=== PATIENT | female | born 1940 | race Two or more races ===

== ENCOUNTER 2017-08-12 19:28 | Emergency (ER) | payer MEDICARE ==
[~2017-08-12] VITALS: Ht 167.6 cm; Wt 81.6 kg
[~2017-08-12 19:28] MED LIST: ASPIR 8181 MG ORAL; LISINOPRIL20 MG ORAL
[2017-08-12 19:35] VITALS: BP 174/94
[2017-08-12] MEDS ORDERED: LISINOPRIL5 MG ORAL (19:36)
[2017-08-12] MEDS ORDERED: PLAVIX75 MG ORAL (19:36)
[2017-08-12] MEDS ORDERED: METOPROLOL TART25 MG ORAL (19:36)
[2017-08-12] MEDS ORDERED: Ciprofloxacin Opth Soln 2.5ml LEFT EYE STA ×2 (19:55→19:58)
--- NOTE | 2017-08-12 19:55 | Emergency Room Report ---
History of Present Illness General Chief Complaint: Earache Source: Patient Present Illness HPI Patient with left ear pain and nausea and decreased hearing without documented fever. She took ampicillin 1 g twice today. The ear feels like it's closing up. It's painful when she pulled on it. Pain is 6/10, aching pressure, radiating to back of head behind ear. No vomit, chest pain, dyspnea, joint or neck pain, dysuria, change in bowels, bleeding problems. She occasionally takes antihypertensive medication. She occasionally has anxiety. 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/a Reviewed Nursing Documentation: PMH: Agreed, PSxH: Agreed Nursing Documentation-PMH Past Medical History: No History, Except For Hx Hypertension: Yes Review of Systems All Other Systems: negative except mentioned in HPI Physical Exam Vital Signs Date Time Temp Pulse Resp B/P (MAP) Pulse Ox O2 Delivery O2 Flow Rate FiO2 08/12/17 19:31 98.2 98 16 174/94 95 Room Air Sp02 EP Interpretation: reviewed, normal General Appearance: normal inspection, well appearing, no apparent distress, alert, GCS 15 Head: normocephalic, atraumatic Eyes: bilateral eye normal inspection, bilateral eye fluoroscene uptake ENT: normal pharynx, moist mucus membranes, other - Left ear canal with erythema and swelling. Pinna tenderness with movement. Mastoid without tenderness. R TM and canal normal Neck: full range of motion, supple Respiratory: no respiratory distress, speaking full sentences Cardiovascular #1: regular rate, rhythm Cardiovascular #2: 2+ radial (L) Gastrointestinal: normal inspection Musculoskeletal: gait/station normal, normal range of motion Neurologic: alert, normal gait, grossly normal Psychiatric: mood/affect normal Skin: no rash - except for ear canal erythema Medical Decision Making Diagnostic Impression: Primary Impression: Otitis externa Qualified Codes: H60.312 - Diffuse otitis externa, left ear ER Course Patient with L ear pain and exam c/w OE. Significant infection needing oral antibiotics as well as topical. Ear wick placed and cipro instilled. Tolerated well. Patient stable for outpatient observation and treatment. Last Vital Signs Date Time Temp Pulse Resp B/P (MAP) Pulse Ox O2 Delivery O2 Flow Rate FiO2 08/12/17 20:35 98.2 79 19 160/81 97 Room Air Status: improved Disposition: HOME, SELF-CARE Condition: Improved Scripts Tramadol Hcl* (ULTRAM*) 50 Mg Tablet 50 MG ORAL Q6H Y for For Pain, #8 TAB 0 Refills Prov: Lewis Ruiz M.D. 08/12/17 Neomycin/Polymyxin B Sulf/Hc (XEJOCUNR-DVZVESJDB-KT EAR SUSP) 10 Ml Drops.susp 3 DROP OTIC TID, #15 ML Prov: Lewis Ruiz M.D. 08/12/17 Ciprofloxacin Hcl* (CIPROFLOXACIN HCL*) 500 Mg Tablet 500 MG ORAL Q12H, #14 TAB 0 Refills Prov: Lewis Ruiz M.D. 08/12/17 Ondansetron Odt* (ZOFRAN ODT*) 4 Mg Tab.rapdis 4 MG ORAL Q8H Y for Nausea & Vomiting, #6 TAB 0 Refills Prov: Lewis Ruiz M.D. 08/12/17 Lewis Ruiz M.D. Aug 12, 2017 19:55
[2017-08-12] MEDS ORDERED: Ciprofloxacin 500mg tab ORAL ONE (20:00)
[2017-08-12] MEDS ORDERED: TRAMADOL HCL50 MG ORAL (20:30)
[2017-08-12] MEDS ORDERED: ZOFRAN ODT4 MG ORAL (20:30)
[2017-08-12] MEDS ORDERED: NEOMYCIN-POLYMY10 M1 OTIC (20:30)
[2017-08-12] MEDS ORDERED: CIPROFLOXACIN500 M2 ORAL (20:30)
[2017-08-12 20:35] VITALS: BP 160/81
== END 2017-08-12 20:35 | disposition home or self-care (01) ==
LOC: EMR 19:56
DX: H60.312 Diffuse otitis externa, left ear (principal); I10 Essential (primary) hypertension
CPT/HCPCS: 99284